=== PATIENT | female | born 1975 | race Caucasian/White ===

== ENCOUNTER 2021-10-20 07:54 | Day surgery (SDC) | payer OTHER ==
[~2021-10-20] VITALS: Ht 172.7 cm; Wt 65.8 kg
[2021-10-20] MEDS ORDERED: fentaNYL citrate 0.05 MG/ML VIAL ONE (09:06)
[2021-10-20] MEDS ORDERED: LIDOCAINE 2% 100 MG/5 ML UJET TP ONE (09:07)
[2021-10-20] MEDS ORDERED: fentaNYL citrate 0.05 MG/ML VIAL IVP ONE (09:55)
== END 2021-10-20 10:20 | disposition home or self-care (01) ==
LOC: MOR 07:54 → MMU 07:55 → MOR 10:20
PROVIDERS: ATTEND Internal Medicine Gastroenterology
DX: Z12.11 Encounter for screening for malignant neoplasm of colon (principal); D50.9 Iron deficiency anemia, unspecified; Z20.822 Contact with and (suspected) exposure to COVID-19
CPT/HCPCS: 45378; 81025; 87426; J3010